=== PATIENT | male | born 1985 | race Caucasian/White ===

== ENCOUNTER 2016-07-18 22:35 | Emergency (ER) | payer MEDICAID ==
--- NOTE | 2016-07-29 20:32 | ER ---
ADMIT: 07/18/2016 RM/LOC: [facility] MR#: [id number] [address] [facility] [address], [place] [id number] [address] [place] [address] Emergency Room Report SEX: M AGE: 31 : 1985 DATE: 07/18/2016 See T-sheet for complete H and P. ADDENDUM: A 31-year-old male, who has no medical issues, comes in with some pain in his chest. He states this pain is worse with certain movements and is made worse when he pushes on a certain spot on his chest. He has no history of heart problems. He has not been having any fevers or chills and is not short of breath. On examination, he does have some tenderness on his left anterior chest wall. His heart and lungs sound normal. The rest of exam is unremarkable. Based on my exam, I believe the patient does have chest wall pain, but I am unsure what the etiology is at this time. He otherwise is stable with no medical problems. We will give the patient a shot of Toradol, and he is to be on ibuprofen 3 times a day for the next several days. He is to follow up with Dr. Robledo if not improving and return to the ER for any concerning symptoms. Lebron Greene MD/ valentin JOB #: [id number] CC: Lebron Greene MD, Attending Physician Efrain Robledo MD, Family Physician
== END 2016-07-18 23:25 | disposition home or self-care (01) ==
LOC: ER 22:35
DX: R07.89 Other chest pain (principal); F17.210 Nicotine dependence, cigarettes, uncomplicated; Z88.8 Allergy status to other drugs, medicaments and biological substances